=== PATIENT | male | born 1945 | race Caucasian/White ===

== ENCOUNTER 2024-02-07 12:17 | Emergency (ER) | payer MEDICARE, OTHER, SELFPAY ==
[2024-02-07] VITALS (8 sets, daily range): BP systolic 109–139; BP diastolic 63–81; BMI 20.8
[2024-02-07 13:01] LABS: % Basophils 0.5 % (0-2); % Eosinophils 2.9 % (0-6); % Immature Granulocytes 0.3 % (0-0.5); % Lymphocytes 19.7 % (20.5-51.1); % Monocytes 9.5 % (1.7-9.3); % Neutrophils 67.1 % (42.2-75.2); Absolute Basophils 0.1 10^3/uL (0-0.2); Absolute Eosinophils 0.3 10^3/uL (0-0.7); Absolute Lymphocytes 1.9 10^3/uL (1.2-3.4); Absolute Monocytes 0.9 10^3/uL (0.1-0.6); Absolute Neutrophils 6.6 10^3/uL (1.4-6.5); Hematocrit 47.1 % (39.0-52.0); Hemoglobin 15.8 g/dL (13.0-18.0); Mean Corp Hgb Conc. 33.5 g/dL (33.0-37.0); Mean Corpuscular Hgb 30.3 pg (27.0-31.0); Mean Corpuscular Volume 90.2 fL (80.0-94.0); Mean Platelet Volume 9.9 fL (7.4-10.4); Nucleated Red Blood Cells % 0 % (-); Platelet Count 204 10^3/uL (130-400); Red Blood Cell Count 5.22 10^6/uL (4.70-6.10); Red Cell Dist. Width 14.6 % (11.5-14.5); White Blood Cell Count 9.8 10^3/uL (4.8-10.8)
--- NOTE | 2024-02-07 13:17 | ED.CVA ---
History of Present Illness
General
Chief Complaint: CVA/TIA Symptoms
Source: patient and family
Time Seen by Provider: 02/07/24 12:56
Onset of Stroke Symptoms
Onset of symptoms known: Yes
Date of onset of symptoms: 02/05/24
Travel History
Have you had any contact with someone who has COVID-19?: No
Do you have any symptoms of coronavirus? Fever > 100 degrees, chills, cough, shortness of breath, sore throat, loss of taste or smell, muscle aches, or headache?: No
History of Present Illness
History of Present Illness:
78-year-old male who presents with his daughter who was concerned about him. On Wednesday he sort of went to bed early as he was little more tired than usual. He slept all night which is atypical for him. In the middle of the night he was found on
the ground and had fallen. He must of got back in bed but then maybe fell a second time and in the morning the daughter became concerned because he was still sleeping and noticed that he was only half on the bed. The patient states that he was
weak on his right side and could not get back into bed. He states he mostly just notes that he was weak in his right lower extremity no fevers. No headache. He did not want to come in yesterday. Today he actually feels better but he spoke to his
neurologist who advised he come for evaluation. He has been urinating somewhat frequently.
Past History
Past History
ED Past Medical History: Other (Chronic spinal issues, CANVAS SYNDROME)
ED Past Surgical History: Orthopedic
Social History
Living: with family
Phy Exam
Physical Exam
Physical Exam:
CONSTITUTIONAL Patient alert and oriented to person, place and time. Well-appearing. Vital signs reviewed.
HEAD atraumatic, normocephalic.
EYES eyelids normal to inspection, Pupils equally round and reactive to light, Extraocular muscles intact, Conjunctiva normal, Sclera normal.
NECK normal range of motion, Trachea midline, no jugular venous distention.
RESPIRATORY CHEST No respiratory distress noted, Chest expansion equal, Bilateral breath sounds clear.
CARDIOVASCULAR regular rate and rhythm, Heart sounds normal.
ABDOMEN abdomen nontender, Bowel sounds normal. No distention.
BACK normal inspection, no obvious deformities
UPPER EXTREMITY range of motion normal, Motor strength normal, no cyanosis, no edema.
LOWER EXTREMITY range of motion normal, Motor strength normal, no cyanosis, no edema.
NEURO Speech normal, No focal motor deficits, [place] coma scale 15, Memory normal, Cranial Nerves intact to screening exam. No pronator drift. Normal [id number]. Normal [id number].
SKIN skin warm, dry, and normal in color.
PSYCHIATRIC patient oriented to person place and time, Normal affect.
Course
Orders/Labs/Results
Orders:
Orders
02/07/24 12:44
CMP [Comprehensive Metabolic Panel] Routine
Complete Blood Count/With Diff Urgent
02/07/24 13:16
CT Head W/o Iv Contrast Urgent
Comment:
Reason For Exam: R sided weakness, h/o CANVAS syndrome
02/07/24 13:17
0.9% Sodium Chloride 500 ml [Nss] 500 ml IV BOLUS
02/07/24 14:28
Urinalysis Reflex To Culture Urgent
Date Specimen was Collected: 02/07/24
Time Specimen was Collected: 13:18
02/07/24 16:07
Carotid US [US Cerebrovascular] Urgent
Comment:
Reason For Exam: R sided weakness, resolved
Abnormal Lab Results
02/07/24
12:44
RDW 14.6 H %
(11.5-14.5)
Absolute Neuts (auto) 6.6 H 10^3/uL
(1.4-6.5)
Absolute Monos (auto) 0.9 H 10^3/uL
(0.1-0.6)
Lymphocytes % 19.7 L %
(20.5-51.1)
Monocytes % 9.5 H %
(1.7-9.3)
BUN 22 H mg/dl
(9-20)
Total Protein 6.0 L g/dl
(6.3-8.2)
02/07/24 12:44
02/07/24 12:44
Vital Signs
Initial and Last Documented VS:
Initial Vital Signs
Temp Pulse Resp BP Pulse Ox
98.1 F 78 18 125/81 91
02/07/24 12:19 02/07/24 12:19 02/07/24 12:19 02/07/24 12:19 02/07/24 12:19
Last Documented Vital Signs
Temp Pulse Resp BP Pulse Ox
97.2 F 67 18 121/68 93
02/07/24 14:51 02/07/24 15:15 02/07/24 15:15 02/07/24 15:00 02/07/24 15:15
MDM/Problems Addressed
MDM/Problems Addressed:
Weakness, possible TIA, history of Canvas syndrome
*Radiology
Radiology exam reviewed: radiology read reviewed
*Pulse Oximetry
Patient hypoxic: no
*Volunteer Assistant Interpretation
Rate: normal
Interpretation: normal
Rhythm: sinus
*Critical Care Note
Total Time (30-74mins, 75-104mins- exclusive of procedures): Not Applicable
Data Reviewed
Source: patient and family
Further Testing Considered But Not Given:
Considered MRI but patient is completely asymptomatic and his neuroassessment is normal
Patient Management
Discussion with other providers: [facility] [employer] (Case discussed with neurology Dr. Farah)
Escalation/DeEscalation of care consider admission/obs:
Case discussed with neurology. Carotid ultrasound shows less than 50%. Neurology recommends statin, daily aspirin and outpatient follow-up. I think this is reasonable. Patient at rest with no symptoms. Okay for discharge. Known to [facility]
neurology which she will follow-up with
ED Attending Note
-
Portions of this chart may have been created with voice recognition software.� Occasional wrong word or��sound alike� substitutions may have occurred due to the inherent limitations of voice recognition software.
Discharge Plan
Departure
Patient Disposition: Home (Routine Discharge)
Date of Disposition: 02/07/24
Time of Disposition: 17:05
Patient with high blood pressure during this ER visit?: No
Discharge Problem:
WEAKNESS-RESOLVED
Instructions: Generalized Weakness
Prescriptions:
New
atorvastatin 20 mg tablet
20 mg PO DAILY Qty: 30 0RF
No Action
gabapentin 100 mg Capsule
100 mg PO BID@1300,1900
morphine 15 mg Tablet
15 mg PO BID
oxycodone 5 mg Tablet
5 mg PO QID
Referrals:
Mark Zaman MD [Family Provider] -
Activity Restrictions/Additional Instructions:
Please see your doctor or neurologist in the next 3 to 5 days for follow-up and reevaluation. Return immediately for any weakness of any kind, changes in mentation, fevers, chest pain, shortness of breath or any other concerns.
Please take 81 mg of aspirin daily.
Interventions
Interventions:
*Risk Screen - Suicide Last Done: 02/07/24 12:24
*General Assessment Last Done: 02/07/24 12:24
*Neglect/Abuse Screening Last Done: 02/07/24 12:24
ED- Fall Risk Assessment Last Done: 02/07/24 12:56
*ED COVID-19 Vaccine History Last Done: 02/07/24 12:32
ED- Pulmonary Assessment Last Done: 02/07/24 12:56
ED- Neurological Assessment Last Done: 02/07/24 12:56
ED- Cardiac Assessment Last Done: 02/07/24 12:56
ED Swallowing Screen Last Done: 04/29/24 15:42
Discharge Date and Time
Print Language: YAKUT
[2024-02-07 13:24] LABS: ALT (SGPT) 24 U/L (0-50); AST (SGOT) 26 U/L (17-59); Albumin 3.7 g/dl (3.5-5.0); Alkaline Phosphatase 80 U/L (38-126); Blood Urea Nitrogen 22 mg/dl (9-20); Carbon Dioxide 29 mmol/L (22-30); Chloride 103 mmol/L (98-107); Estimated Creatinine Clearance 67 ml/min; Glucose 75 mg/dl (70-99); Potassium 3.9 mmol/L (3.5-5.1); Sodium 139 mmol/L (135-145); Total Bilirubin 0.7 mg/dl (0.2-1.3); eGFR > 60.00
[2024-02-07] MEDS: NSS 500 IV (13:24)
--- NOTE | 2024-02-07 14:30 | EDRN ---
the pt pressed the call chaparro and this RN entered the pts room, the pt stated to this RN that he needed to use the bathroom, this RN unhooked the pt from the monitor and the pt was able to walk to the bathroom and back to the stretcher x1 assist with
no issues, the pt is resting in stretcher in the lowest position, side rails up x2, call chaparro within reach, HOB elevated, will continue to monitor the pt closely
[2024-02-07 14:36] LABS: Urine Albumin Negative (Neg - Trace); Urine Bilirubin Negative (Negative); Urine Character Clear (Clear); Urine Glucose Negative (Negative); Urine Ketone Negative (Negative); Urine Leukocyte Negative (Negative); Urine Nitrite Negative (Negative); Urine Occult Blood Negative (Negative); Urine Urobilinogen 1+ (Neg - 1+)
[2024-02-07 14:37] LABS: Urine Color Yellow
== END 2024-02-07 17:31 | disposition home or self-care (01) ==
LOC: EMR 12:17
PROVIDERS: Emergency Medicine; EMERGENCY PHYSICIAN Emergency Medicine; FAMILY PHYSICIAN Internal Medicine
DX: R53.1 Weakness (principal)
CPT/HCPCS: 99285; 96360; 70450; 80053; 81003; 85025; 93880

== ENCOUNTER 2024-08-09 18:13 | Emergency (ER) | payer MEDICARE, OTHER, SELFPAY ==
[2024-08-09 18:29] VITALS: BP 151/77
--- NOTE | 2024-08-09 23:08 | ED.GENMED ---
History of Present Illness
General
Chief Complaint: Ear Problem
Source: patient
Exam Limitations: none
Time Seen by Provider: 08/09/24 21:58
Nursing documentation reviewed up to this point in time: agreed with
History of Present Illness
History of Present Illness:
Patient to ED with complaint of loss of hearing, fullness sensationn to left ear. Symptoms started earlier this week. He participated in a telehealth visit and was prescribed antibiotc ear drops for possible OE. Reports no improvement. Daughter
reports hx of wax impactions. Has been using debrox over the past few days but symptpoms persist. Denies fever/chills, recent illness. No history of trauma. Denies any pain
Past History
Past History
ED Past Medical History: Other (Chronic spinal issues, CANVAS SYNDROME)
ED Past Surgical History: Orthopedic
Social History
Living: with family
Review of Systems
Review of Systems
Allergies reviewed?: Yes
All Other Systems: ROS reviewed and negative except as documented in HPI and ROS
Constitutional: Reports no symptoms
EENT: Reports other (loss of hearing, fullness sensation left ear)
Respiratory: Reports no symptoms
Cardiac: Reports no symptoms
ABD/GI: Reports no symptoms
: Reports no symptoms
Musculoskeletal: Reports no symptoms
Skin: Reports no symptoms
Neurological: Reports no symptoms
Psychiatric: Reports no symptoms
Phy Exam
General Physical Exam
General Presentation: well appearing
General age: appears stated age
General Skin: warm and dry
General Habitus: normal
General Mental: alert
ENT Exam
ENT Exam: neck supple, swallowing well and other (right TM, canal clear. Left canal with cerumen impaction. TM not visible)
Musculoskeletal Exam
Musculoskeletal Exam: full ROM and neuro vasc intact
Skin Exam
Skin Exam: normal color, warm/dry and no rash
Psychiatric Exam
Psychiatric Exam: normal mood/affect
Course
Vital Signs
Initial and Last Documented VS:
Initial Vital Signs
Temp Pulse Resp BP Pulse Ox
98.6 F 74 16 151/77 99
08/09/24 18:29 08/09/24 18:29 08/09/24 18:29 08/09/24 18:29 08/09/24 18:29
Last Documented Vital Signs
Temp Pulse Resp BP Pulse Ox
98.6 F 74 16 151/77 99
08/09/24 18:29 08/09/24 18:29 08/09/24 18:29 08/09/24 18:29 08/09/24 18:29
Procedures
Foreign Body Removal-Ear
Left External canal:
Tenderness: none
Any local drainage: none
External ear canal cleaned with removal of cerumen using: irrigation and curette
Exam of canal after removal: no inflammation (Left TM clear.)
*Critical Care Note
Total Time (30-74mins, 75-104mins- exclusive of procedures): Not Applicable
ED Attending Note
-
Portions of this chart may have been created with voice recognition software.� Occasional wrong word or��sound alike� substitutions may have occurred due to the inherent limitations of voice recognition software.
Discharge Plan
Departure
Patient Disposition: Home (Routine Discharge)
Date of Disposition: 08/09/24
Time of Disposition: 22:05
Patient with high blood pressure during this ER visit?: No
Condition: Good
Covid-19: Not Applicable
Discharge Problem:
Impacted cerumen
Instructions: Ear Wax Impaction (DC)
Prescriptions:
No Action
gabapentin 100 mg Capsule
100 mg PO BID@1300,1900
morphine 15 mg Tablet
15 mg PO BID
oxycodone 5 mg Tablet
5 mg PO QID
atorvastatin 20 mg tablet
20 mg PO DAILY Qty: 30 0RF
Referrals:
Mark Zaman MD [Family Provider] - As needed
Interventions
Interventions:
*Risk Screen - Suicide Last Done: 08/09/24 18:29
*General Assessment Last Done: 08/09/24 22:11
*Neglect/Abuse Screening Last Done: 08/09/24 18:29
ED- Fall Risk Assessment Last Done: 08/09/24 22:11
*ED COVID-19 Vaccine History Last Done: 08/09/24 22:11
*Nursing Disposition Last Done: 08/09/24 22:11
Discharge Date and Time
Discharge Date/Time: 08/09/24 22:12
Print Language: BULGARIAN
== END 2024-08-09 22:12 | disposition home or self-care (01) ==
LOC: EMR 18:13
PROVIDERS: EMERGENCY PHYSICIAN Emergency Medicine; FAMILY PHYSICIAN Internal Medicine
DX: H61.22 Impacted cerumen, left ear (principal)
CPT/HCPCS: 69210; 99282

== ENCOUNTER 2024-09-06 14:20 | Emergency (ER) | payer MEDICARE, OTHER, SELFPAY ==
[2024-09-06 14:27] VITALS: BP 130/89
[2024-09-06 15:06] VITALS: BP 132/76
--- NOTE | 2024-09-06 15:27 | ED.GENMED ---
Addendum entered and electronically signed by Elda Santiago PA-C 09/07/24 08:09:
subha culture was not enough sample to test and was cancelled
i spoke with patient, he is feeling better, no fever.
Original Note:
History of Present Illness
General
Chief Complaint: Breathing Problem
Source: patient and family
Time Seen by Provider: 09/06/24 15:03
History of Present Illness
History of Present Illness:
79-year-old male presents to the emergency room from his primary care doctor's office. He went to the doctor's office for evaluation of a cough that is been present for the past 2 or 3 weeks. He has less energy, decreased appetite. He is
tolerating oral intake but has not minimal desire to eat. He is drinking fluids. Patient is a daily smoker. He does not have a diagnosed history of COPD. He does not use inhalers or nebulizers. He had a subjective fever last week. Patient
became dizzy when he got out of the car in the parking lot. No recent travel.
Past History
Past History
ED Past Medical History: Other (Chronic spinal issues, CANVAS SYNDROME)
ED Past Surgical History: Orthopedic
Social History
Living: with family
Phy Exam
Physical Exam
Physical Exam:
General: Awake, Alert, Oriented X3. No acute distress, thin and chronically ill-appearing
Vitals: Hypoxic on room air
Head: Atraumatic
Eyes: Pupils equal, EOMI
Throat: Airway intact, no exudates
Neck: Trachea midline
Lungs: Rhonchi and expiratory wheeze
Heart: Regular rate, no murmurs
Abd: Soft, Nontender, No pulsatile mass
Neuro: No focal weakness
Skin: Warm, dry, no rash
Extremities: pulses equal b/l, no edema
Scores
Heart Failure Risk
Heart Failure Risk Score: Not Applicable
Course
Orders/Labs/Results
Orders:
Orders
09/06/24 14:22
Electrocardiogram (*1) Urgent
Reason for Study: Shortness of Breath
Other Reason for Exam: Dizziness
EKG- Treatment ONCE
09/06/24 15:22
Ipratropium/Albuterol Sulfate [Duoneb] 3 ml INH R NOW STA
09/06/24 15:23
CR Chest - 2 Views Urgent
Comment:
Reason For Exam: sob, cough
09/06/24 15:51
Basic Metabolic Panel Urgent
Complete Blood Count/With Diff Urgent
Lactic Acid Q4H
Comment: CANCEL 2nd LACTIC ACID IF 1st LACTIC ACID IS LESS THAN 2
Procalcitonin Urgent
PCT Algorithmm Indication: Respiratory
Blood Culture Urgent
TAWANDA Source: Blood/Venous
Specimen Description:
Influenza A+B Rapid Molecular Urgent
TAWANDA Source: Nasal Swab
Specimen Description:
09/06/24 17:11
Ipratropium/Albuterol Sulfate [Duoneb] 3 ml INH R NOW STA
09/06/24 18:21
Prednisone [Deltasone] 60 mg PO NOW STA
Abnormal Lab Results
09/06/24
15:51
WBC 11.9 H 10^3/uL
(4.8-10.8)
Abs Immat Gran (auto) 0.1 H 10^3/uL
(0-0.05)
Absolute Neuts (auto) 9.6 H 10^3/uL
(1.4-6.5)
Absolute Monos (auto) 0.8 H 10^3/uL
(0.1-0.6)
Immature Gran % 0.6 H %
(0-0.5)
Neutrophils % 80.9 H %
(42.2-75.2)
Lymphocytes % 10.8 L %
(20.5-51.1)
Chloride 97 L mmol/L
(98-107)
09/06/24 15:51
09/06/24 15:51
Vital Signs
Initial and Last Documented VS:
Initial Vital Signs
Temp Pulse Resp BP
99.9 F 75 16 130/89
09/06/24 14:27 09/06/24 14:27 09/06/24 14:27 09/06/24 14:27
Last Documented Vital Signs
Temp Pulse Resp BP Pulse Ox
99.9 F 66 17 132/76 91
09/06/24 14:27 09/06/24 15:15 09/06/24 16:04 09/06/24 15:06 09/06/24 15:15
MDM/Problems Addressed
Differential Diagnosis Includes:
pneumonia, acute bronchitis, copd exacerbation,
MDM/Problems Addressed:
Patient presents with persistent cough, shortness of breath with exertion. He was seen at his primary care provider sent to the ER. Workup here reveals a minimally elevated white blood cell count. His hemoglobin is normal. His chemistries are
reassuring. Procalcitonin is normal. Chest x-ray obtained and I do not see any signs of infiltrate. Patient was given DuoNebs here. He was given a dose of oral prednisone. We did a road test and he was able to ambulate with a walker at his
baseline. His daughter observed him ambulating and felt like he was not quite at his baseline but okay. Joint decision making with the conclusion of discharge. Return precautions discussed. My plan was to discharge the patient on doxycycline,
prednisone and an albuterol metered-dose inhaler. Daughter states they received confirmation from the pharmacy that a prescription for Levaquin and an albuterol MDI was already sent. Therefore I will send a prescription for prednisone only.
*Radiology
Radiology exam reviewed: preliminary read by ED provider (No infiltrate)
*Pulse Oximetry
Patient hypoxic: yes
Comment: 91
*EKG
Interpreted by ED Provider?: Yes
Comparison EKG: no comparison EKG present
Heart Rate: 73
Rate: normal
Rhythm: sinus and PAC's
[place]: normal axis
Interval: normal interval
QRS Pattern: normal QRS
Ischemia: no ischemia
*Pants Cutter Interpretation
Rate: normal
Interpretation: normal
Heart Rate: 73
Rhythm: sinus and PAC's
*Critical Care Note
Total Time (30-74mins, 75-104mins- exclusive of procedures): Not Applicable
ED Attending Note
-
Portions of this chart may have been created with voice recognition software.� Occasional wrong word or��sound alike� substitutions may have occurred due to the inherent limitations of voice recognition software.
Discharge Plan
Departure
Patient Disposition: Home (Routine Discharge)
Date of Disposition: 09/06/24
Time of Disposition: 18:21
Patient with high blood pressure during this ER visit?: No
Condition: Good
Discharge Problem:
Acute bronchitis, Acute bronchospasm
Instructions: Acute Bronchitis, Adult (DC), Wheezing
Prescriptions:
New
prednisone 20 mg tablet
40 mg PO DAILY Qty: 8 0RF
No Action
gabapentin 100 mg Capsule
100 mg PO BID@1300,1900
morphine 15 mg Tablet
15 mg PO BID
oxycodone 5 mg Tablet
5 mg PO QID
atorvastatin 20 mg tablet
20 mg PO DAILY Qty: 30 0RF
Referrals:
Hernandez Marrero MD [Active] -
Mark Zaman MD [Family Provider] -
Interventions
Interventions:
ED- Fall Risk Assessment Last Done: 09/06/24 16:04
ED- Cardiac Assessment Last Done: 09/06/24 16:04
ED- Pulmonary Assessment Last Done: 09/06/24 16:04
Discharge Date and Time
Print Language: SLOVENIAN
[2024-09-06] MEDS: DUONEB 3 ML INH ×2 (15:52→17:14)
[2024-09-06 16:04] VITALS: BMI 21.3
[2024-09-06 16:19] LABS: % Basophils 0.4 % (0-2); % Eosinophils 0.6 % (0-6); % Immature Granulocytes 0.6 % (0-0.5); % Lymphocytes 10.8 % (20.5-51.1); % Monocytes 6.7 % (1.7-9.3); % Neutrophils 80.9 % (42.2-75.2); Absolute Basophils 0.1 10^3/uL (0-0.2); Absolute Eosinophils 0.1 10^3/uL (0-0.7); Absolute Immature Granulocytes 0.1 10^3/uL (0-0.05); Absolute Lymphocytes 1.3 10^3/uL (1.2-3.4); Absolute Monocytes 0.8 10^3/uL (0.1-0.6); Absolute Neutrophils 9.6 10^3/uL (1.4-6.5); Hematocrit 47.4 % (39.0-52.0); Hemoglobin 15.7 g/dL (13.0-18.0); Lactic Acid 1.2 mmol/L (0.7-2.0); Mean Corp Hgb Conc. 33.1 g/dL (33.0-37.0); Mean Corpuscular Hgb 29.7 pg (27.0-31.0); Mean Corpuscular Volume 89.6 fL (80.0-94.0); Mean Platelet Volume 9.9 fL (7.4-10.4); Nucleated Red Blood Cells % 0 % (-); Platelet Count 298 10^3/uL (130-400); Red Blood Cell Count 5.29 10^6/uL (4.70-6.10); Red Cell Dist. Width 14.3 % (11.5-14.5); White Blood Cell Count 11.9 10^3/uL (4.8-10.8)
[2024-09-06 16:34] LABS: Blood Urea Nitrogen 11 mg/dl (9-20); Calcium 8.8 mg/dl (8.4-10.2); Carbon Dioxide 28 mmol/L (22-30); Chloride 97 mmol/L (98-107); Estimated Creatinine Clearance 77 ml/min; Glucose 96 mg/dl (70-99); Potassium 4.8 mmol/L (3.5-5.1); Sodium 135 mmol/L (135-145); eGFR > 60.00
[2024-09-06 16:48] LABS: Procalcitonin 0.07 ng/ml (0.0-0.25)
[2024-09-06] MEDS: DELTASONE 60 MG PO (18:38)
== END 2024-09-06 18:39 | disposition home or self-care (01) ==
LOC: EMR 14:20
PROVIDERS: EMERGENCY PHYSICIAN Emergency Medicine; FAMILY PHYSICIAN Internal Medicine
DX: J20.9 Acute bronchitis, unspecified (principal); F17.200 Nicotine dependence, unspecified, uncomplicated
CPT/HCPCS: 99285; 94640; 71046; 80048; 83605; 84145; 85025; 87040; 87502; 93005

== ENCOUNTER 2024-12-30 10:31 | Emergency (ER) | payer MEDICARE, OTHER, SELFPAY ==
[2024-12-30 10:33] VITALS: BP 142/89
[2024-12-30 11:09] VITALS: BP 159/91
[2024-12-30] MEDS: NSS 1000 IV (11:16)
--- NOTE | 2024-12-30 11:20 | ED.GENMED ---
History of Present Illness
General
Chief Complaint: Fall
Time Seen by Provider: 12/30/24 10:44
History of Present Illness
History of Present Illness:
79-year-old male with history of CANVAS presenting to the emergency department after a fall. Patient reports that he got up this morning, got out of bed and went downstairs. He had a couple coffee and then got up to going to his office. He
started to feel dizzy and lightheaded, fell onto his right side with subsequent injury to the right parietal scalp and right ribs. He denies loss of consciousness. Daughter at bedside, does note frequent falls. Patient also frequently has dizzy
episodes from his CANVAS, and from his gabapentin. Patient also has history of chronic pain, takes morphine and oxycodone. He had an oxycodone this morning, drank coffee, and did not have anything to eat or drink otherwise. Denies associated
chest pain or difficulty breathing. Denies abdominal pain. Denies weakness or numbness to his extremities. He is on aspirin, otherwise no thinners. Denies additional acute medical complaints
Past History
Past History
ED Past Medical History: Other (Chronic spinal issues, CANVAS SYNDROME)
ED Past Surgical History: Orthopedic
Social History
Living: with family
Phy Exam
Physical Exam
Physical Exam:
General: Well-appearing, no clinical signs of dehydration, nontoxic and in no acute distress
Head: abrasion to right parietal scalp, above ear, skin avulsion
HEENT: protecting airway
Neck: appears supple, no tenderness
CV: Normal heart rate, regular rhythm
Resp: No accessory muscle use, no increased work of breathing, lungs clear to auscultation bilaterally. Reproducible tenderness to the mid axillary region of the upper right chest wall. No crepitus. No ecchymosis
Abd: Soft and non-distended, no tenderness to palpation
Extremities: No deformities, no swelling
Neuro: alert, no focal neurologic deficit
: deferred
Rectal: deferred
Psych: Normal affect
Skin: Intact
Course
Orders/Labs/Results
Orders:
Orders
12/30/24 11:07
0.9% Sodium Chloride 1000 ml [Nss] 1,000 ml IV BOLUS
Ribs, Right 3 View W/PA Chest [CR Ribs-right 3 Vw W/pa Chest*] Urgent
Comment:
Reason For Exam: upper right pain after fall
12/30/24 11:08
CT Head W/o Iv Contrast Urgent
Comment:
Reason For Exam: fall, right head strike
12/30/24 11:15
Complete Blood Count/With Diff Urgent
Comprehensive Metabolic Panel Urgent
12/30/24 12:18
Oxycodone/Acetaminophen [Percocet 5/325] 1 tablet PO NOW STA
Abnormal Lab Results
12/30/24
11:15
RDW 14.6 H %
(11.5-14.5)
Absolute Neuts (auto) 7.4 H 10^3/uL
(1.4-6.5)
Absolute Monos (auto) 0.8 H 10^3/uL
(0.1-0.6)
Lymphocytes % 13.7 L %
(20.5-51.1)
Total Protein 5.8 L g/dl
(6.3-8.2)
12/30/24 11:15
12/30/24 11:15
Vital Signs
Initial and Last Documented VS:
Initial Vital Signs
Temp Pulse Resp BP Pulse Ox
98.5 F 73 18 142/89 98
12/30/24 10:33 12/30/24 10:33 12/30/24 10:33 12/30/24 10:33 12/30/24 10:33
Last Documented Vital Signs
Temp Pulse Resp BP Pulse Ox
98.7 F 68 14 154/74 95
12/30/24 10:36 12/30/24 12:15 12/30/24 12:15 12/30/24 12:11 12/30/24 12:15
MDM/Problems Addressed
MDM/Problems Addressed:
79-year-old male with history of CANVAS presenting after a dizzy episode and subsequent fall. Vital signs on arrival are normal.
On arrival patient is overall well-appearing, awake and alert. Does have some signs of head trauma with small skin avulsion to the right side of the scalp. Bleeding is controlled. No tenderness to the cervical spine. He additionally has
tenderness to the upper chest wall at the mid axillary region with suspicion for rib contusion versus fracture. Lungs are clear to auscultation bilaterally with lower suspicion for pneumothorax. Plan for CT brain imaging and chest x-ray imaging.
No additional signs of trauma or abnormality on secondary exam. Regarding mechanism of fall, suspect vasovagal quality versus side effect from patient's syndrome. Plan for screening laboratory analysis and IV fluids. Tetanus up-to-date. Wound
was cleaned and appropriately dressed.
13:00 -CT head negative. Rib x-ray is negative. Labs are unremarkable. Patient remains hemodynamically stable. Feel stable for discharge. Advised continued oral hydration, and appropriate nutrition while taking narcotics and gabapentin. Will
provide incentive spirometry. Return precautions discussed and patient verbalized understanding
*Critical Care Note
Total Time (30-74mins, 75-104mins- exclusive of procedures): Not Applicable
ED Attending Note
-
Portions of this chart may have been created with voice recognition software.� Occasional wrong word or��sound alike� substitutions may have occurred due to the inherent limitations of voice recognition software.
Discharge Plan
Departure
Prescriptions:
No Action
gabapentin 100 mg Capsule
100 mg PO BID@1300,1900
morphine 15 mg Tablet
15 mg PO BID
oxycodone 5 mg Tablet
5 mg PO QID
atorvastatin 20 mg tablet
20 mg PO DAILY Qty: 30 0RF
prednisone 20 mg tablet
40 mg PO DAILY Qty: 8 0RF
Referrals:
Mark Zaman MD [Family Provider] -
Interventions
Interventions:
*Risk Screen - Suicide Last Done: 12/30/24 10:33
*General Assessment Last Done: 12/30/24 10:33
*ED- Fall Risk Assessment Last Done: 12/30/24 10:33
*ED COVID-19 Vaccine History Last Done: 12/30/24 10:33
ED-Musculoskeletal Assessment Last Done: 12/30/24 11:27
ED- Neurological Assessment Last Done: 12/30/24 11:27
ED-Skin Assessment Last Done: 12/30/24 11:27
Discharge Date and Time
Print Language: INDONESIAN
[2024-12-30 11:22] LABS: % Basophils 0.6 % (0-2); % Eosinophils 4.6 % (0-6); % Immature Granulocytes 0.3 % (0-0.5); % Lymphocytes 13.7 % (20.5-51.1); % Monocytes 7.4 % (1.7-9.3); % Neutrophils 73.4 % (42.2-75.2); Absolute Basophils 0.1 10^3/uL (0-0.2); Absolute Eosinophils 0.5 10^3/uL (0-0.7); Absolute Lymphocytes 1.4 10^3/uL (1.2-3.4); Absolute Monocytes 0.8 10^3/uL (0.1-0.6); Absolute Neutrophils 7.4 10^3/uL (1.4-6.5); Hematocrit 47.4 % (39.0-52.0); Hemoglobin 15.8 g/dL (13.0-18.0); Mean Corp Hgb Conc. 33.3 g/dL (33.0-37.0); Mean Corpuscular Hgb 29.9 pg (27.0-31.0); Mean Corpuscular Volume 89.8 fL (80.0-94.0); Mean Platelet Volume 9.9 fL (7.4-10.4); Nucleated Red Blood Cells % 0 % (-); Platelet Count 243 10^3/uL (130-400); Red Blood Cell Count 5.28 10^6/uL (4.70-6.10); Red Cell Dist. Width 14.6 % (11.5-14.5); White Blood Cell Count 10.1 10^3/uL (4.8-10.8)
[2024-12-30 11:39] LABS: ALT (SGPT) 19 U/L (0-50); AST (SGOT) 24 U/L (17-59); Albumin 3.5 g/dl (3.5-5.0); Alkaline Phosphatase 90 U/L (38-126); Blood Urea Nitrogen 12 mg/dl (9-20); Carbon Dioxide 30 mmol/L (22-30); Chloride 103 mmol/L (98-107); Glucose 97 mg/dl (70-99); Potassium 4.4 mmol/L (3.5-5.1); Sodium 137 mmol/L (135-145); Total Bilirubin 0.8 mg/dl (0.2-1.3); Total Protein 5.8 g/dl (6.3-8.2); eGFR > 60.00
[2024-12-30 12:11] VITALS: BP 154/74
[2024-12-30] MEDS: PERCOCET 5/325 1 TABLET PO (12:24)
[2024-12-30 13:00] VITALS: BP 121/71
== END 2024-12-30 13:33 | disposition home or self-care (01) ==
LOC: EMR 10:31
PROVIDERS: EMERGENCY PHYSICIAN Student in an Organized Health Care Education/Training Program; FAMILY PHYSICIAN Internal Medicine
DX: S20.20XA Contusion of thorax, unspecified, initial encounter (principal); S01.80XA Unspecified open wound of other part of head, initial encounter; S09.90XA Unspecified injury of head, initial encounter; W19.XXXA Unspecified fall, initial encounter
CPT/HCPCS: 99284; 96360; 70450; 71101; 80053; 85025

== ENCOUNTER → 2025-02-16 13:49 | Outpatient (REF) | payer MEDICARE, OTHER, SELFPAY ==
[2025-02-16 14:12] LABS: Urine Albumin Negative (Neg - Trace); Urine Bilirubin Negative (Negative); Urine Character Clear (Clear); Urine Color Yellow; Urine Glucose Negative (Negative); Urine Ketone Negative (Negative); Urine Leukocyte Negative (Negative); Urine Nitrite Negative (Negative); Urine Occult Blood Negative (Negative); Urine Urobilinogen 1+ (Neg - 1+)
== END ==
LOC: REG 13:49
PROVIDERS: ATTENDING PHYSICIAN Nurse Practitioner Adult Health
DX: R35.0 Frequency of micturition (principal); R32 Unspecified urinary incontinence
CPT/HCPCS: 81003

== ENCOUNTER 2025-06-27 22:43 | Inpatient (IN) | payer MEDICARE, OTHER, SELFPAY ==
[2025-06-27] VITALS (10 sets, daily range): BP systolic 82–118; BP diastolic 50–82; BMI 19.0
--- NOTE | 2025-06-27 20:33 | ED.GENMED ---
History of Present Illness
<Brenna Hidalgo PA-C - Last Filed: 06/28/25 11:30>
General
Chief Complaint: Breathing Problem
Source: patient and family (Daughter at bedside who is caregiver)
Exam Limitations: none
Time Seen by Provider: 06/27/25 20:13
Nursing documentation reviewed up to this point in time: agreed with
History of Present Illness
History of Present Illness:
Patient is a 80-year-old male who presents to the emergency department with daughter/caregiver for evaluation of fever and altered mental status X 1 day. Patient's daughter states that her father began complaining of feeling 'unwell' around 3 PM
yesterday and was describing rigors and myalgias. She also states that he has been doing a few unusual things since yesterday including bringing a towel with him inside the shower and having difficulty using the TV remote, as well as calling her by
the wrong name.
She states that he is been somewhat incontinent to urine since yesterday. He has been dealing with a productive cough with clear sputum over the past few weeks.
Today�patient states he continued to feel unwell prompting visit to the emergency department.
Patient denies any headache or neck pain. He denies any abdominal pain, nausea/vomiting, diarrhea/constipation. No dysuria or hematuria.
No recent head trauma. Patient is not on any oral anticoagulation.
No known sick contacts.
Past History
<Brenna Hidalgo PA-C - Last Filed: 06/28/25 11:30>
Past History
ED Past Medical History: Other (Chronic spinal issues, CANVAS SYNDROME)
ED Past Surgical History: Orthopedic
Social History
Living: with family
Review of Systems
<Brenna Hidalgo PA-C - Last Filed: 06/28/25 11:30>
Review of Systems
Allergies reviewed?: Yes
All Other Systems: ROS reviewed and negative except as documented in HPI and ROS
Phy Exam
<Brenna Hidalgo PA-C - Last Filed: 06/28/25 11:30>
Physical Exam
Physical Exam:
Vitals: Hypoxic on room air. Normotensive by my assessment. Temp 101.0 F
General: Patient is frail appearing, generally weak
Skin: Warm and dry, no rashes or lesions
Head: Normocephalic, atraumatic
Eyes: Sclera nonicteric. EOMs intact. No nystagmus.
Throat: Protecting airway
Neck: Normal ROM, no cervical spine tenderness, no meningismus
Cardiac: Regular rate and rhythm, no murmurs.
Pulm: On 2 L NC. Coarse breath sounds bilaterally
Abdomen: Abdomen soft and nontender. No CVA tenderness.
Extremities: No evidence of cyanosis or edema
Neuro: AAOx3. Grossly intact
Psychiatric: Normal affect.
Scores
<Brenna Hidalgo PA-C - Last Filed: 06/28/25 11:30>
Heart Failure Risk
Heart Failure Risk Score: Not Applicable
Sepsis
<Brenna Hidalgo PA-C - Last Filed: 06/28/25 11:30>
Sepsis Screening
Sepsis Assessment: Severe Sepsis
Sepsis Screening: Lactate >2mmol/L and Worsening O2 Saturation
Sepsis Screen
Sepsis Screen: Severe Sepsis
Date: 06/28/25
Time: 11:21
Course
<Brenna Hidalgo PA-C - Last Filed: 06/28/25 11:30>
Orders/Labs/Results
Orders:
Orders
06/27/25 20:12
Electrocardiogram (*1) Urgent
Reason for Study: Other
Other Reason for Exam: Possible Sepsis
Cardiac Monitoring- Treatment ONCE
EKG- Treatment ONCE
IV Insert/Care/Rem.- Treatment PRN
Straight cath- Treatment ONCE
06/27/25 20:21
COVID-19 Antigen Urgent
Source: Nasal Swab
Complete Blood Count/With Diff Urgent
Comprehensive Metabolic Panel Urgent
Lactic Acid Q4H
Comment: ON ICE, CANCEL 2ND ORDER IF FIRST LACTIC ACID LEVEL <2
Blood Culture Q20M
TAWANDA Source: Blood/Venous
Specimen Description:
Comment: Urgent from separate sites. If patient screens positive for possible sepsis
Influenza A+B Rapid Molecular Urgent
TAWANDA Source: Nasal Swab
Specimen Description:
06/27/25 20:33
CT Head W/o Iv Contrast Urgent
Comment:
Reason For Exam: AMS
CR Chest - 2 Views Urgent
Comment:
Reason For Exam: cough, fever
06/27/25 20:36
Urinalysis Reflex To Culture Urgent
Date Specimen was Collected: 06/27/25
Time Specimen was Collected: 20:12
Urine Microscopic Reflex Cult Urgent
Blood Culture Q20M
TAWANDA Source: Blood/Venous
Specimen Description:
Comment: Urgent from separate sites. If patient screens positive for possible sepsis
Urine Culture Urgent
TAWANDA Source: U
Specimen Description:
Date Specimen was Collected: 06/27/25
Time Specimen was Collected: 20:12
06/27/25 20:59
Acetaminophen [Tylenol] 650 mg PO NOW STA
06/27/25 21:23
Azithromycin 500 mg/250 ml [Zithromax Infusion] 500 mg in 250 ml IV NOW
CefTRIAXone [Rocephin] 1,000 mg IV NOW STA
Sodium Zirconium Cyclosilicate [Lokelma] 10 gram PO NOW STA
06/27/25 21:37
0.9% Sodium Chloride 1000 ml [Nss] 1,000 ml IV BOLUS
Oxycodone [Roxicodone] 5 mg PO NOW STA
06/27/25 22:22
Admit/Transfer Patient As Directed
Co-Sign Provider:
Level of Care: Inpatient admission
Assign to:: Telemetry
Physician / Group: Damián
Diagnosis: Pneumonia
Reason for Telemetry: Arrhythmia
Date to Stop Telemetry: 06/30/25
Time to Stop Telemetry: 11:00
Reason for Hospitalization: IV abx
Expected length of stay greater than two midnights?: Yes
ELOS- Estimated Length of Stay in days: 3
I certify the patient meets the requirements for IP care: Yes
06/27/25 22:23
PRN Pain Medication Management As Directed
May give lesser potent ordered pain med per pt: Yes
preference::
Protocol:: Medication orders for pain may be administered in a
manner that supports deferring to patient preference
when the pt is:
- Requesting an ordered lesser potent pain medication.
Least to most potent pain medications are defined
as: acetaminophen < NSAID < tramadol < opioids
(morphine, oxycodone, hydromorphone).
- Requesting a lesser dose of the same medication IF
ORDERED.
- Requesting a less intrusive route of administration
if both routes are prescribed by the provider (PO <
IV).
06/27/25 22:25
Code Status As Directed
Resuscitation Status: Full Code
06/27/25 22:45
0.9% Sodium Chloride 1000 ml [Nss] 1,000 ml IV 250 mls/hr
06/27/25 23:53
Potassium Routine
Comment: Please call result to house provider
06/28/25 00:03
Lactic Acid Q4H
Comment: ON ICE, CANCEL 2ND ORDER IF FIRST LACTIC ACID LEVEL <2
06/28/25 00:25
Acetaminophen [Tylenol] 650 mg PO Q4HPRN PRN
Ipratropium/Albuterol Sulfate [Duoneb] 3 ml INH R Q4HPRN PRN
06/28/25 00:25
Activity As Directed
Activity Level: Out of Bed-Early Mobility
With Assistance
Vital Signs As Directed
Frequency: Per unit guidelines
Oxygen Therapy [O2 Therapy] [RESP] Routine
Titrate/Wean O2 to maintain O2 sat greater than (%): 92
Ot Eval And Treat Routine
Pt Eval And Treat Routine
Activity Level: Out of Bed-Early Mobility
DX Deep Vein Thrombosis Video Routine
06/28/25 01:00
Morphine Sulfate 15 mg PO BID@0100,1300
06/28/25 03:00
0.9% Sodium Chloride 1000 ml [Nss] 1,000 ml IV 80 mls/hr
06/28/25 04:00
Oxycodone [Roxicodone] 5 mg PO 0400,1000,1600,2200
06/28/25 Breakfast
Regular
At Your Request: Full Participation
06/28/25 07:00
Gabapentin [Neurontin] 100 mg PO BID@0700,1900
06/28/25 08:00
Aspirin Low Dose EC [Aspir Low (Enteric Coated)] 81 mg PO DAILY
Guaifenesin [Mucinex] 600 mg PO Q12
Ipratropium/Albuterol Sulfate [Duoneb] 3 ml INH R QID
06/28/25 08:06
Basic Metabolic Panel IN AM
Complete Blood Count/No Diff IN AM
Magnesium IN AM
06/28/25 18:00
Enoxaparin Sodium [Lovenox] 40 mg SC QPM
06/28/25 22:00
Azithromycin [Zithromax] 500 mg PO HS
CefTRIAXone [Rocephin] 1,000 mg IV Q24H
06/30/25 11:00
DC Protocol for Telemetry ONCE
Abnormal Lab Results
06/27/25 06/27/25
20:21 20:36
WBC 20.7 H 10^3/uL
(4.8-10.8)
MCHC 32.3 L g/dL
(33.0-37.0)
RDW 16.6 H %
(11.5-14.5)
Abs Immat Gran (auto) 0.2 H 10^3/uL
(0-0.05)
Absolute Neuts (auto) 18.3 H 10^3/uL
(1.4-6.5)
Absolute Monos (auto) 0.9 H 10^3/uL
(0.1-0.6)
Immature Gran % 0.8 H %
(0-0.5)
Neutrophils % 88.5 H %
(42.2-75.2)
Lymphocytes % 5.7 L %
(20.5-51.1)
Potassium 6.1 H* mmol/L
(3.5-5.1)
BUN 27 H mg/dl
(9-20)
Glucose 104 H mg/dl
(70-99)
Lactic Acid 2.6 H mmol/L
(0.7-2.0)
Total Bilirubin 1.6 H mg/dl
(0.2-1.3)
Urine Bacteria (Reflex) Moderate A
(Negative)
Urine Albumin (Reflex) 2+ A
(Neg - Trace)
06/27/25 20:21
06/27/25 20:21
Vital Signs
Initial and Last Documented VS:
Initial Vital Signs
Temp Pulse Resp BP Pulse Ox
99.6 F 92 16 82/57 89
06/27/25 19:49 06/27/25 19:49 06/27/25 19:49 06/27/25 19:49 06/27/25 19:49
Last Documented Vital Signs
Temp Pulse Resp BP Pulse Ox
101.5 F H 77 16 147/74 98
06/28/25 07:08 06/28/25 11:14 06/28/25 11:14 06/28/25 07:08 06/28/25 11:14
<Karan Cardenas, DO - Last Filed: 06/27/25 21:37>
Orders/Labs/Results
Orders:
Orders
06/27/25 20:12
Electrocardiogram (*1) Urgent
Reason for Study: Other
Other Reason for Exam: Possible Sepsis
Cardiac Monitoring- Treatment ONCE
EKG- Treatment ONCE
IV Insert/Care/Rem.- Treatment PRN
Straight cath- Treatment ONCE
06/27/25 20:21
COVID-19 Antigen Urgent
Source: Nasal Swab
Complete Blood Count/With Diff Urgent
Comprehensive Metabolic Panel Urgent
Lactic Acid Q4H
Comment: ON ICE, CANCEL 2ND ORDER IF FIRST LACTIC ACID LEVEL <2
Blood Culture Q20M
TAWANDA Source: Blood/Venous
Specimen Description:
Comment: Urgent from separate sites. If patient screens positive for possible sepsis
Influenza A+B Rapid Molecular Urgent
TAWANDA Source: Nasal Swab
Specimen Description:
06/27/25 20:33
CT Head W/o Iv Contrast Urgent
Comment:
Reason For Exam: AMS
CR Chest - 2 Views Urgent
Comment:
Reason For Exam: cough, fever
06/27/25 20:36
Urinalysis Reflex To Culture Urgent
Date Specimen was Collected: 06/27/25
Time Specimen was Collected: 20:12
Urine Microscopic Reflex Cult Urgent
Blood Culture Q20M
TAWANDA Source: Blood/Venous
Specimen Description:
Comment: Urgent from separate sites. If patient screens positive for possible sepsis
Urine Culture Urgent
TAWANDA Source: U
Specimen Description:
Date Specimen was Collected: 06/27/25
Time Specimen was Collected: 20:12
06/27/25 20:59
Acetaminophen [Tylenol] 650 mg PO NOW STA
06/27/25 21:23
Azithromycin 500 mg/250 ml [Zithromax Infusion] 500 mg in 250 ml IV NOW
CefTRIAXone [Rocephin] 1,000 mg IV NOW STA
Sodium Zirconium Cyclosilicate [Lokelma] 10 gram PO NOW STA
06/27/25 21:37
0.9% Sodium Chloride 1000 ml [Nss] 1,000 ml IV BOLUS
Oxycodone [Roxicodone] 5 mg PO NOW STA
06/27/25 22:22
Admit/Transfer Patient As Directed
Co-Sign Provider:
Level of Care: Inpatient admission
Assign to:: Telemetry
Physician / Group: Damián
Diagnosis: Pneumonia
Reason for Telemetry: Arrhythmia
Date to Stop Telemetry: 06/30/25
Time to Stop Telemetry: 11:00
Reason for Hospitalization: IV abx
Expected length of stay greater than two midnights?: Yes
ELOS- Estimated Length of Stay in days: 3
I certify the patient meets the requirements for IP care: Yes
06/27/25 22:23
PRN Pain Medication Management As Directed
May give lesser potent ordered pain med per pt: Yes
preference::
Protocol:: Medication orders for pain may be administered in a
manner that supports deferring to patient preference
when the pt is:
- Requesting an ordered lesser potent pain medication.
Least to most potent pain medications are defined
as: acetaminophen < NSAID < tramadol < opioids
(morphine, oxycodone, hydromorphone).
- Requesting a lesser dose of the same medication IF
ORDERED.
- Requesting a less intrusive route of administration
if both routes are prescribed by the provider (PO <
IV).
06/27/25 22:25
Code Status As Directed
Resuscitation Status: Full Code
06/27/25 22:45
0.9% Sodium Chloride 1000 ml [Nss] 1,000 ml IV 250 mls/hr
06/27/25 23:53
Potassium Routine
Comment: Please call result to house provider
06/28/25 00:03
Lactic Acid Q4H
Comment: ON ICE, CANCEL 2ND ORDER IF FIRST LACTIC ACID LEVEL <2
06/28/25 00:25
Acetaminophen [Tylenol] 650 mg PO Q4HPRN PRN
Ipratropium/Albuterol Sulfate [Duoneb] 3 ml INH R Q4HPRN PRN
06/28/25 00:25
Activity As Directed
Activity Level: Out of Bed-Early Mobility
With Assistance
Vital Signs As Directed
Frequency: Per unit guidelines
Oxygen Therapy [O2 Therapy] [RESP] Routine
Titrate/Wean O2 to maintain O2 sat greater than (%): 92
Ot Eval And Treat Routine
Pt Eval And Treat Routine
Activity Level: Out of Bed-Early Mobility
DX Deep Vein Thrombosis Video Routine
06/28/25 01:00
Morphine Sulfate 15 mg PO BID@0100,1300
06/28/25 03:00
0.9% Sodium Chloride 1000 ml [Nss] 1,000 ml IV 80 mls/hr
06/28/25 04:00
Oxycodone [Roxicodone] 5 mg PO 0400,1000,1600,2200
06/28/25 Breakfast
Regular
At Your Request: Full Participation
06/28/25 07:00
Gabapentin [Neurontin] 100 mg PO BID@0700,1900
06/28/25 08:00
Aspirin Low Dose EC [Aspir Low (Enteric Coated)] 81 mg PO DAILY
Guaifenesin [Mucinex] 600 mg PO Q12
Ipratropium/Albuterol Sulfate [Duoneb] 3 ml INH R QID
06/28/25 08:06
Basic Metabolic Panel IN AM
Complete Blood Count/No Diff IN AM
Magnesium IN AM
06/28/25 18:00
Enoxaparin Sodium [Lovenox] 40 mg SC QPM
06/28/25 22:00
Azithromycin [Zithromax] 500 mg PO HS
CefTRIAXone [Rocephin] 1,000 mg IV Q24H
06/30/25 11:00
DC Protocol for Telemetry ONCE
Abnormal Lab Results
06/27/25 06/27/25
20:21 20:36
WBC 20.7 H 10^3/uL
(4.8-10.8)
MCHC 32.3 L g/dL
(33.0-37.0)
RDW 16.6 H %
(11.5-14.5)
Abs Immat Gran (auto) 0.2 H 10^3/uL
(0-0.05)
Absolute Neuts (auto) 18.3 H 10^3/uL
(1.4-6.5)
Absolute Monos (auto) 0.9 H 10^3/uL
(0.1-0.6)
Immature Gran % 0.8 H %
(0-0.5)
Neutrophils % 88.5 H %
(42.2-75.2)
Lymphocytes % 5.7 L %
(20.5-51.1)
Potassium 6.1 H* mmol/L
(3.5-5.1)
BUN 27 H mg/dl
(9-20)
Glucose 104 H mg/dl
(70-99)
Lactic Acid 2.6 H mmol/L
(0.7-2.0)
Total Bilirubin 1.6 H mg/dl
(0.2-1.3)
Urine Bacteria (Reflex) Moderate A
(Negative)
Urine Albumin (Reflex) 2+ A
(Neg - Trace)
06/27/25 20:21
06/27/25 20:21
Vital Signs
Initial and Last Documented VS:
Initial Vital Signs
Temp Pulse Resp BP Pulse Ox
99.6 F 92 16 82/57 89
06/27/25 19:49 06/27/25 19:49 06/27/25 19:49 06/27/25 19:49 06/27/25 19:49
Last Documented Vital Signs
Temp Pulse Resp BP Pulse Ox
101.5 F H 77 16 147/74 98
06/28/25 07:08 06/28/25 11:14 06/28/25 11:14 06/28/25 07:08 06/28/25 11:14
<Brenna Hidalgo PA-C - Last Filed: 06/28/25 11:30>
MDM/Problems Addressed
Differential Diagnosis Includes:
Not limited to: Sepsis, viral illness, bronchitis, pneumonia, pulmonary embolism, urosepsis, UTI, acute intracerebral hemorrhage, etc.
MDM/Problems Addressed:
80-year-old male presenting with one day of altered mental status and fevers. History of recent productive cough for a few weeks. No abdominal pain, urinary symptoms, or back pain. Patient hypoxic on RA upon arrival and febrile. Otherwise stable
vital signs. Physical exam as above.
Differential broad. Given history and fever on arrival � concern for infectious process. Clinical picture consistent with pulmonary source. Lower suspicion for central cause of AMS.
ED plan: septic work up including labs, lactic acid, blood cultures. Will check urinalysis. Will check chest x-ray and CT head to r/o acute intracranial abnormality. Will give IV fluids wide open and Tylenol.
Update: Labs reveal leukocytosis of 20,000. Chemistry with hyperkalemia, K of 6.1 however no acidosis or renal insufficiency. EKG show sinus tachycardia without signs of peaked T waves. UA does not appear infected. Head CT without acute findings.
Chest x-ray shows right lower lobe opacity suspicious for pneumonia.
Patient started on Rocephin/azithromycin in ED. He was given a dose of lokelma to treat hyperkalemia.
Patient meets severe sepsis criteria with hypoxia, fever, evidence of pulmonary infection and elevated lactic acid.
His vital signs remained stable in ED without hypotension and was accepted to hospitalist service for further care.
Chronic conditions affecting care:
N/A
Acute Exacerbation and/or Progression of Chronic Illness:
N/A
<Brenna Hidalgo PA-C - Last Filed: 06/28/25 11:30>
*Radiology
Radiology exam reviewed: preliminary read by ED provider (Chest x-ray reviewed by me-right lower lobe opacity) and radiology read reviewed
*Pulse Oximetry
SaO2: 97
Nasal Cannula flow liters per minute: 2
Oxygen Mode of Delivery: Room air
Patient hypoxic: yes
*EKG
Interpreted by ED Provider?: Yes
EKG Intrepretation Date: 06/27/25
Comparison EKG: changes noted
Heart Rate: 103
Rate: tachycardiac
Rhythm: sinus
[place]: normal axis
Interval: normal QT interval
QRS Pattern: normal QRS
Ischemia: non-specific ST changes
*Front Desk Person Interpretation
Rate: normal
Interpretation: normal
Heart Rate: 86
Rhythm: sinus
*Critical Care Note
Total Time (30-74mins, 75-104mins- exclusive of procedures): Not Applicable
<Brenna Hidalgo PA-C - Last Filed: 06/28/25 11:30>
Patient Management
Discussion with other providers: Hospitalist
Escalation/DeEscalation of care consider admission/obs:
Admit for further management
ED Attending Note
<Brenna Hidalgo PA-C - Last Filed: 06/28/25 11:30>
-
Portions of this chart may have been created with voice recognition software.� Occasional wrong word or��sound alike� substitutions may have occurred due to the inherent limitations of voice recognition software.
<Karan Cardenas DO - Last Filed: 06/27/25 21:37>
ED Attending Note
Patient seen and examined by attending physician: Yes
I performed the substantive portion of visit, reviewed & personally made and approve the management plan that is documented in note by myself or RADHA.: Yes
ED Attending Note:
I evaluated the patient at bedside. Concern for sepsis. He is febrile with marked leukocytosis. He initially arrived hypotensive and hypoxic but is improving with fluids. Giving IV antibiotics. Spoke to daughter/care tech at bedside.
Discharge Plan
Departure
Patient Disposition: Admit
Date of Disposition: 06/27/25
Time of Disposition: 21:38
Presentation/result/management discussed w/ accepting MD/DO: Hospitalist
Patient with high blood pressure during this ER visit?: No
Discharge Problem:
Sepsis, Right lower lobe pneumonia, Acute hyperkalemia
Interventions
Interventions:
*Risk Screen - Suicide Last Done: 06/28/25 00:13
*General Assessment Last Done: 06/27/25 20:42
*Neglect/Abuse Screening Last Done: 06/27/25 20:42
*ED- Fall Risk Assessment Last Done: 06/27/25 20:42
*ED COVID-19 Vaccine History Last Done: 06/27/25 20:42
*Nursing Disposition Last Done: 06/28/25 00:13
ED- Cardiac Assessment Last Done: 06/27/25 20:45
ED- Pulmonary Assessment Last Done: 06/27/25 20:45
Discharge Date and Time
Discharge Date/Time: 06/28/25 00:14
[2025-06-27 20:37] LABS: Hematocrit 46.1 % (39.0-52.0); Hemoglobin 14.9 g/dL (13.0-18.0); Mean Corp Hgb Conc. 32.3 g/dL (33.0-37.0); Mean Corpuscular Volume 89.3 fL (80.0-94.0); Nucleated Red Blood Cells % 0 % (-); Platelet Count 229 10^3/uL (130-400); Red Cell Dist. Width 16.6 % (11.5-14.5)
[2025-06-27 20:50] LABS: Urine Character Clear (Clear)
[2025-06-27 20:56] LABS: COVID-19 Antigen Negative (Negative)
[2025-06-27 21:00] LABS: Urine Red Blood Cell 0-2 /HPF (0-2); Urine White Cell 0-2 /HPF (0-5)
[2025-06-27] MEDS: TYLENOL 650 MG PO (21:04)
[2025-06-27 21:15] LABS: ALT (SGPT) 19 U/L (0-50); AST (SGOT) 21 U/L (17-59); Albumin 3.9 g/dl (3.5-5.0); Alkaline Phosphatase 118 U/L (38-126); Blood Urea Nitrogen 27 mg/dl (9-20); Calcium 9.3 mg/dl (8.4-10.2); Carbon Dioxide 29 mmol/L (22-30); Chloride 103 mmol/L (98-107); Estimated Creatinine Clearance 42 ml/min; Glucose 104 mg/dl (70-99); Potassium 6.1 mmol/L (3.5-5.1); Sodium 137 mmol/L (135-145); Total Protein 6.5 g/dl (6.3-8.2); eGFR > 60.00
[2025-06-27] MEDS: NSS 1000 IV ×2 (21:45→22:57)
[2025-06-27] MEDS: ROXICODONE 5 MG PO (21:45)
[2025-06-27] MEDS: LOKELMA 10 GRAM PO (21:47)
[2025-06-27] MEDS: ROCEPHIN 1000 MG IV (21:49)
[2025-06-27] MEDS: ZITHROMAX INFUSION 250 IV (21:55)
--- NOTE | 2025-06-27 21:56 | W.PN.UPDATE ---
Update Note
Progress Note Update
This is an addendum to H&P written by CLIENT SERVICES ASSISTANT Yumiko Lara
I saw and examined the patient.
The CLIENT SERVICES ASSISTANT's note was reviewed and I agree with the note.
Comment:
Mr. Jomar Salinas is a 80 yo man with hx CANVAS syndrome (cerebellar ataxia, neuropathy, vestibular areflexia syndrome), presents to the ER with fevers and change in mentation. He has a cough, weakness and trouble breathing found to have RLL
pneumonia.
Triage VS: T 99.6 up to 101, P 92, RR 16, BP 82/57, SpO98 89%; repeat BP post fluids 118/76
On exam patient is frail appearing, in no acute distress; + course breath sounds, no LE swelling
LABS: WBC 20.7, Hg 14.9, PLT 229, Na 137, K+ 6.1, Cr 1.1, Lactate 2.6, T. Bili 1.6, AST 21, ALT 19
EKG: sinus tachycardia, no peaked T waves
Head CT
IMPRESSION:
No acute intracranial abnormality.
CXR
FINDINGS/IMPRESSION:
Right lower lobe airspace opacity, most compatible with pneumonia. Recommend radiographic follow-up to resolution.
Small right pleural fluid may also be present.
Low lung volumes. No pneumothorax. The cardiomediastinal silhouette is normal. Chronic degenerative changes of the spine.
Severe Sepsis 2/2 RLL Pneumonia
TME 2/2 Above
-admit to telemetry
-IVF
-IV Ceftriaxone/Azithro
-trend lactate
-follow up cultures
Hyperkalemia
-s/p fluids and Lokelma in the ER. K < 6.5 without EKG changes
-repeat K in 4 hours
-if K remains elevated, patient needs further Lokelma dosing and possible IV insulin/glucose therapy
Hx CANVAS syndrome
-chronic issues with balance and speech
-continue asa 81 daily
Cervical spine degenerative disc disease
Chronic pain, opiate dependence
-continue home regimen
DVT PPx Lovenox subQ
FULL CODE
76 minutes spent on patient care
--- NOTE | 2025-06-27 22:22 | HPS.HSE ---
Family Physician
-
Family Physician: Chan Rodriguez
Chief Complaint
-
Fever
History of Present Illness
Patient is a 80 y/o male past medical history of CANVAS syndrome, cervical degenerative disc disease and chronic pain with opioid dependence who presents with fever. Additional history is obtained from patient's daughter at the bedside. Patient
started to feel unwell yesterday after with fevers as high as 102.7F. Daughter notes patient was experiencing hallucinations with fever but refused to come to the hospital yesterday. Fevers continued today associated with sweats and rigors. She
notes patient has been dealing with a productive cough over the past few weeks with sputum that was initially clear, however during my evaluation patient produced a very thick cream/orange colored sputum.
Medical History
Past Medical History
Past Medical History: Reports Other
Additional Past Medical History:
Cervical Degenerative Disc Disease
Chronic Pain with Opioid Dependence
CANVAS Syndrome
Past Surgical History: Reports None
Social History
Tobacco: Smoker (Currently just a few cigarettes per day)
Alcohol: None
Family History
Family History: Not pertinent
Allergies / Home Medications
Allergies reflects when Allergies were last updated in [employer].
Home Medications with original date entered in [employer]
Allergy/Medication List:
Allergies
Allergy/AdvReac Type Severity Reaction Status Date / Time
Penicillins Allergy Unknown Unknown Verified 06/27/25 21:42
Home Medications
gabapentin 100 mg capsule 100 mg PO BID@0700,1900 02/07/24
morphine 15 mg immediate release tablet 15 mg PO BID@0100,1300 02/07/24
oxycodone 5 mg tablet 5 mg PO 0400,1000,1600,2200 02/07/24
albuterol sulfate 90 mcg/actuation aerosol inhaler 2 puff inhalation Q4HPRN PRN shortness of breath 06/27/25
aspirin 81 mg tablet 81 mg PO DAILY 06/27/25
Review of Systems
-
A 12 point ROS was completed and negative except as noted: Yes
Constitutional: Reports Fever and Chills
Respiratory: Reports Cough
Cardiac: Denies Chest Pain
Abdomen/GI: Denies Abdominal Pain, Nausea or Vomiting
Physical Exam
Vital Signs
Vital Signs
Temp Pulse Resp BP Pulse Ox
101.0 F H 72 15 104/65 99
06/27/25 20:41 06/27/25 22:00 06/27/25 22:00 06/27/25 22:00 06/27/25 22:00
Physical Exam
General: Comfortable and Conversant
HEENT: Anicteric and Moist mucous membranes
Respiratory: Wheezes (bilateral bases, Right greater than Left), Rales (bilateral bases) and Non Labored Respirations
Cardiac: S1/S2 and Regular Rhythm
GI: Soft and Non Tender
Rectal: Deferred by Provider
Musculoskeletal: No Clubbing, No Cyanosis and No Edema
Skin: Warm and Dry
Neuro: Awake, Alert, Oriented and Nonfocal/grossly intact
Psych: Calm
Laboratory Results
-
06/27/25 20:21
06/27/25 20:21
Laboratory Results
Lactic Acid 2.6 mmol/L (0.7-2.0) H 06/27/25 20:21
Total Bilirubin 1.6 mg/dl (0.2-1.3) H 06/27/25 20:21
AST 21 U/L (17-59) 06/27/25 20:21
ALT 19 U/L (0-50) 06/27/25 20:21
Alkaline Phosphatase 118 U/L (38-126) 06/27/25 20:21
Data Reviewed
-
Lab Data: Labs Reviewed by me
Impression/Plan
-
Severe Sepsis secondary to Pneumonia
-Continue ceftriaxone and azithromycin
-Attempt to obtain sputum cultures
-Await blood cultures
-Add Mucinex
Cervical Degenerative Disc Disease
Chronic Pain with Opioid Dependence
-Continue gabapentin, morphine, and oxycodone as prior to admission
CANVAS Syndrome
-Consult PT/OT and Speech
DVT proph: Lovenox
Code Status: Full Code
[2025-06-27] MEDS: NSS 500 IV (23:52)
[2025-06-28] VITALS (11 sets, daily range): BP systolic 98–147; BP diastolic 53–74; PULSE 72–98; O2SAT 95–98; BMI 19.9
[2025-06-28 00:13] LABS: Potassium 4.4 mmol/L (3.5-5.1)
[2025-06-28] MEDS: MORPHINE SULFATE 15 MG PO ×2 (01:09→12:50)
--- NOTE | 2025-06-28 01:19 | PTCARENOTE ---
ax3 - temp 100.1- sinus 70's bp wnl- fluids at 250 running- ambulated to br x1 /walker- reis w i/wheezes- 96% on room air- box lunch given and pt ate . pain meds given per orders. skin looks good. daughter at bedside- poc reviewed.
[2025-06-28] MEDS: NSS 1000 IV (03:24)
[2025-06-28] MEDS: ROXICODONE 5 MG PO ×4 (04:00→21:53)
[2025-06-28] MEDS: NEURONTIN 100 MG PO ×2 (06:44→18:39)
[2025-06-28] MEDS: DUONEB 3 ML INH ×4 (07:19→20:38)
[2025-06-28] MEDS: MUCINEX 600 MG PO ×2 (07:41→20:52)
[2025-06-28] MEDS: ASPIR LOW (ENTERIC COATED) 81 MG PO (07:41)
[2025-06-28] MEDS: TYLENOL 650 MG PO (07:41)
[2025-06-28 09:12] LABS: Hematocrit 38.5 % (39.0-52.0); Hemoglobin 12.7 g/dL (13.0-18.0); Mean Corp Hgb Conc. 33.0 g/dL (33.0-37.0); Mean Corpuscular Volume 90.6 fL (80.0-94.0); Platelet Count 181 10^3/uL (130-400); Red Cell Dist. Width 16.8 % (11.5-14.5)
--- NOTE | 2025-06-28 09:19 | W.PN.HOSP.TC ---
Today's Communication/Plan
-
see A/P
Assessment / Plan
Assessment / Plan
HPI: 80 y/o male past medical history of CANVAS syndrome, cervical degenerative disc disease, chronic pain with opioid dependence; who presented with fever.
Additional history was obtained from patient's daughter at the bedside. 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 Daughter notes patient was experiencing hallucinations with fever but refused to come to the hospital
at that time. Fevers continued and associated with sweats and rigors. She notes patient has been dealing with a productive cough over the past few weeks with sputum that was initially clear, however now has become thick creamy/orange in color.
CXR:
Right lower lobe airspace opacity, most compatible with pneumonia. Recommend radiographic follow-up to resolution.
Small right pleural fluid may also be present.
Low lung volumes. No pneumothorax. The cardiomediastinal silhouette is normal. Chronic degenerative changes of the spine.
A/P:
# Severe Sepsis POA 2/2 RLL Pneumonia/ CAP
# Acute metabolic encephalopathy 2/2 Above
# Acute hypxic respiraoty insuffiency
# Resolved mild lactic acidosis
Pt placed on 4L NC on admission, wean O2 as tolerated, he is not on home O2
Monitor MS
Observe off additional IVF
Cont IV Ceftriaxone/Azithro
follow up cultures, check MRSA screen
Noted COVID/Flu negative
# Hyperkalemia, resolved after treatment with Lokelma
# Hx CANVAS syndrome
# chronic issues with balance and speech
continue asa 81 daily
# Cervical spine degenerative disc disease
# Chronic pain, opiate dependence
continue home regimen
DVT PPx Lovenox subQ
FULL CODE
Dispo: PT OT eval
DW RN
updated daughter on the phone
total time 51 min
Anticipated Discharge: 24 - 48 hours
Subjective/Interval History
-
Date of Service: June 28, 2025
Objective Data
-
Labs:
Laboratory Results
06/27/25 06/28/25
23:53 08:06
WBC 13.8 H
Hgb 12.7 L
Hct 38.5 L
Plt Count 181 D
Sodium Pending
Potassium 4.4 D Pending
Chloride Pending
Carbon Dioxide Pending
BUN Pending
Creatinine Pending
Glucose Pending
Calcium Pending
Vital Signs:
Vital Signs
Temp Pulse Resp BP Pulse Ox
38.6 C H 81 16 147/74 94
06/28/25 07:08 06/28/25 07:23 06/28/25 07:23 06/28/25 07:08 06/28/25 07:23
I&O
06/27/25 06/28/25 06/29/25
06:59 06:59 06:59
Intake Total 2019
Balance 2019
Review of Systems
-
History Source: Patient
Constitutional: Reports Fever
Respiratory: Reports Cough
Physical Exam
-
General: Well Developed, Well Nourished, Comfortable, Respiratory Distress and Conversant
HEENT: Normocephalic, Atraumatic, Nose Appears Normal, Ears Appear Normal and Oxygen (4L NC)
Respiratory: Clear to Auscultation, Crackles (R base) and Non Labored Respirations; Negative Accessory Resp Muscle Use
Cardiac: Regular Rhythm and S1/S2
GI: Soft, Nontender, Nondistended and Normal Bowel Sounds
Skin: Warm and Dry
Neuro: Awake and Alert
Psych: Calm and Intact Judgement/Insight (somewhat)
Data Reviewed
-
Diagnostic Radiology: Report Reviewed by me
Labs: Labs Reviewed by me
[2025-06-28 09:21] LABS: Blood Urea Nitrogen 21 mg/dl (9-20); Calcium 8.4 mg/dl (8.4-10.2); Carbon Dioxide 27 mmol/L (22-30); Chloride 106 mmol/L (98-107); Estimated Creatinine Clearance 60 ml/min; Glucose 101 mg/dl (70-99); Magnesium 2.1 mg/dl (1.6-2.3); Potassium 4.4 mmol/L (3.5-5.1); Sodium 136 mmol/L (135-145); eGFR > 60.00
--- NOTE | 2025-06-28 13:32 | PTOTSP ---
Dysphagia Evaluation:
Given PMH and current PNA, pt presents w/ chronic risk factors for dysphagia/aspiration. During bedside swallow evaluation, pt demonstrated delayed coughing/throat clearing x1 with clear vocal quality post. He reported no difficulty or sensation of
stasis in throat.
Recommendations:
1. Regulars, Thins
2. Medications as best tolerated.
3. Partial assistance w/ meals.
4. Strategies: Single sips/small bites, slowed rate of eating, alternating liquid washes
5. Instrumental swallow study to objectively determine occurrence of aspiration given PMH and chronic risk factors.
Daughter declined instrumental swallow study. Patient has been deferring to daughter for decisions. ST will sign off. Reconsult if changes in pt presentation or POC.
--- NOTE | 2025-06-28 14:01 | CM ---
CM following re: discharge planning.
Reviewed pt's chart, met with pt and daughter Jane at bedside.
Pt is a 80 year pold male, admitted with primary dx of Pneumonia.
Pt reports he lives with daughter and her family 2SH, 2 steps to enter. Pt reports he has a walker and a cane, does not use them. Pt is current with [facility] and pt expressed his strong desire to return back home with [facility].
PT and OT evaluations noted - SNF level of care recommended. both pt and his daughter are aware and daughter strongly declined SNF level of care and she stated that her father will return back home with [facility]umptions of [facility].
A referral to [facility] made.
PCP: Chan Rodriguez
Pharmacy: [facility]
D/C plan: home with resumptions of [facility] and family support. Daughter to transport at discharge.
CM will follow with discharge plan updates as hospitalization progresses
[2025-06-28] MEDS: LOVENOX 40 MG SC (17:51)
[2025-06-28] MEDS: ZITHROMAX 500 MG PO (21:52)
[2025-06-28] MEDS: STERILE WATER FOR INJECTION 10 ML IV (21:52)
[2025-06-28] MEDS: ROCEPHIN 1000 MG IV (21:52)
[2025-06-29] VITALS (7 sets, daily range): BP systolic 117–181; BP diastolic 62–93
[2025-06-29] MEDS: MORPHINE SULFATE 15 MG PO ×2 (00:01→14:20)
[2025-06-29] MEDS: TYLENOL 650 MG PO (02:39)
[2025-06-29] MEDS: ROXICODONE 5 MG PO ×4 (03:49→22:05)
[2025-06-29] MEDS: NEURONTIN 100 MG PO ×2 (06:46→18:05)
[2025-06-29] MEDS: DUONEB 3 ML INH (07:05)
[2025-06-29 07:19] LABS: Hematocrit 35.3 % (39.0-52.0); Hemoglobin 12.0 g/dL (13.0-18.0); Mean Corp Hgb Conc. 34.0 g/dL (33.0-37.0); Mean Corpuscular Volume 88.3 fL (80.0-94.0); Nucleated Red Blood Cells % 0 % (-); Platelet Count 160 10^3/uL (130-400); Red Cell Dist. Width 16.2 % (11.5-14.5)
[2025-06-29 07:43] LABS: Blood Urea Nitrogen 14 mg/dl (9-20); Calcium 8.4 mg/dl (8.4-10.2); Carbon Dioxide 27 mmol/L (22-30); Chloride 105 mmol/L (98-107); Estimated Creatinine Clearance 80 ml/min; Glucose 94 mg/dl (70-99); Magnesium 2.1 mg/dl (1.6-2.3); Potassium 4.4 mmol/L (3.5-5.1); Sodium 133 mmol/L (135-145); eGFR > 60.00
[2025-06-29] MEDS: MUCINEX 600 MG PO ×2 (07:56→20:55)
[2025-06-29] MEDS: ASPIR LOW (ENTERIC COATED) 81 MG PO (07:56)
--- NOTE | 2025-06-29 08:21 | W.PN.HOSP.TC ---
Addendum entered and electronically signed by Caprice Pina MD 06/29/25 08:39:
discussed dispo option with daughter, she declined SNF and prefers to take pt back with HH
Original Note:
Today's Communication/Plan
-
see A/P
Assessment / Plan
Assessment / Plan
HPI: 80 y/o male past medical history of CANVAS syndrome, cervical degenerative disc disease, chronic pain with opioid dependence; who presented with fever.
Additional history was obtained from patient's daughter at the bedside. 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 Daughter notes patient was experiencing hallucinations with fever but refused to come to the hospital
at that time. Fevers continued and associated with sweats and rigors. She notes patient has been dealing with a productive cough over the past few weeks with sputum that was initially clear, however now has become thick creamy/orange in color.
CXR:
Right lower lobe airspace opacity, most compatible with pneumonia. Recommend radiographic follow-up to resolution.
Small right pleural fluid may also be present.
Low lung volumes. No pneumothorax. The cardiomediastinal silhouette is normal. Chronic degenerative changes of the spine.
A/P:
# Severe Sepsis POA 2/2 RLL Pneumonia/ CAP
# Acute metabolic encephalopathy 2/2 Above,
# Acute hypoxic respiratory insufficiency
# Resolved mild lactic acidosis
O2 weaned to 1.5 L NC, cont to wean as tolerated, he is not on home O2,
MS improving, today AOx2-3, cont to monitor MS
Observe off additional IVF
Cont IV Ceftriaxone/Azithro
follow up cultures, check MRSA screen
Noted COVID/Flu negative
Pt will eventually need repeat CXR outpt with PCP in 4-6 weeks, daughter informed
# Hyperkalemia, resolved after treatment with Lokelma
# Mild hyponatremia
# Hx CANVAS syndrome
# chronic issues with balance and speech
continue asa 81 daily
# Cervical spine degenerative disc disease
# Chronic pain, opiate dependence
continue home regimen
DVT PPx Lovenox subQ
FULL CODE
Dispo: PT OT recc SNF
DW RN
updated daughter at bedside
Anticipated Discharge: 24 - 48 hours
Subjective/Interval History
-
Date of Service: June 29, 2025
Objective Data
-
Labs:
Laboratory Results
06/29/25
06:39
WBC 8.2
Hgb 12.0 L
Hct 35.3 L
Plt Count 160
Sodium 133 L
Potassium 4.4
Chloride 105
Carbon Dioxide 27
BUN 14
Creatinine 0.6 L
Glucose 94
Calcium 8.4
Vital Signs:
Vital Signs
Temp Pulse Resp BP Pulse Ox
36.9 C 76 18 155/78 94
06/29/25 07:05 06/29/25 07:08 06/29/25 07:08 06/29/25 07:05 06/29/25 07:32
I&O
06/28/25 06/29/25 06/30/25
06:59 06:59 06:59
Intake Total 2019 1050 / 1050
Balance 2019 1050 / 1050
Review of Systems
-
History Source: Patient
Constitutional: Reports Fever
Respiratory: Reports Cough (improved )
Physical Exam
-
General: Well Developed, Well Nourished, Comfortable, Respiratory Distress and Conversant
HEENT: Normocephalic, Atraumatic, Nose Appears Normal, Ears Appear Normal and Oxygen (1.5L NC)
Respiratory: Clear to Auscultation, Crackles (R base mild) and Non Labored Respirations; Negative Accessory Resp Muscle Use
Cardiac: Regular Rhythm and S1/S2
GI: Soft, Nontender, Nondistended and Normal Bowel Sounds
Skin: Warm and Dry
Neuro: Awake and Alert
Psych: Calm and Intact Judgement/Insight (somewhat)
Data Reviewed
-
Diagnostic Radiology: Report Reviewed by me
Labs: Labs Reviewed by me
--- NOTE | 2025-06-29 11:34 | CM ---
CM following re: discharge planning.
Reviewed pt's chart, met with pt and daughter Jane at bedside.
Pt lives with daughter and her family 2SH, 2 steps to enter, has a walker and a cane, does not use them. Pt is current with [facility] and pt expressed his strong desire to return back home with resumptions of [facility].
PT and OT evaluations noted - SNF level of care recommended. Both pt and his daughter are aware and daughter strongly declined SNF level of care and she stated that her father will return back home with [facility]um[facility] of [facility]. Pt's
daughter confirmed today again that a plan is for pt to return back home with [facility]umptions of [facility].
A referral to [facility] made yesterday.
Please fax discharge instructions to [facility] at: [phone]
D/C plan: home with resumptions of [facility] and family support. Daughter to transport at discharge.
CM will follow with discharge plan updates as hospitalization progresses
[2025-06-29] MEDS: MORPHINE SULFATE PO ×2 (13:10→13:15)
[2025-06-29] MEDS: LOVENOX 40 MG SC (18:06)
[2025-06-29] MEDS: ROCEPHIN 1000 MG IV (22:02)
[2025-06-29] MEDS: ZITHROMAX 500 MG PO (22:02)
[2025-06-29] MEDS: STERILE WATER FOR INJECTION 10 ML IV (22:02)
[2025-06-29] MEDS: FLUSH (NSS) 2 FLUSH IV (22:03)
[2025-06-30] MEDS: MORPHINE SULFATE 15 MG PO ×2 (01:19→13:19)
[2025-06-30 03:10] VITALS: BP 162/88
[2025-06-30] MEDS: ROXICODONE 5 MG PO ×4 (04:12→21:54)
[2025-06-30 06:53] LABS: Hematocrit 38.9 % (39.0-52.0); Hemoglobin 12.7 g/dL (13.0-18.0); Mean Corp Hgb Conc. 32.6 g/dL (33.0-37.0); Mean Corpuscular Volume 87.8 fL (80.0-94.0); Nucleated Red Blood Cells % 0 % (-); Platelet Count 199 10^3/uL (130-400); Red Cell Dist. Width 15.9 % (11.5-14.5)
[2025-06-30 06:57] LABS: Blood Urea Nitrogen 8 mg/dl (9-20); Calcium 8.4 mg/dl (8.4-10.2); Carbon Dioxide 28 mmol/L (22-30); Chloride 100 mmol/L (98-107); Estimated Creatinine Clearance 80 ml/min; Glucose 79 mg/dl (70-99); Potassium 4.2 mmol/L (3.5-5.1); Sodium 132 mmol/L (135-145); eGFR > 60.00
[2025-06-30 07:05] VITALS: BP 166/96
[2025-06-30] MEDS: NEURONTIN 100 MG PO ×2 (07:23→18:15)
--- NOTE | 2025-06-30 08:06 | W.PN.HOSP.TC ---
Today's Communication/Plan
-
continue to wean off oxygen.
Assessment / Plan
Assessment / Plan
HPI: 80 y/o male past medical history of CANVAS syndrome, cervical degenerative disc disease, chronic pain with opioid dependence; who presented with fever.
Additional history was obtained from patient's daughter at the bedside. 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 Daughter notes patient was experiencing hallucinations with fever but refused to come to the hospital
at that time. Fevers continued and associated with sweats and rigors. She notes patient has been dealing with a productive cough over the past few weeks with sputum that was initially clear, however had become thick creamy/orange in color.
CXR:
Right lower lobe airspace opacity, most compatible with pneumonia.
Recommend radiographic follow-up to resolution.
Small right pleural fluid may also be present.
Low lung volumes. No pneumothorax. The cardiomediastinal silhouette is normal.
Chronic degenerative changes of the spine.
A/P:
1. Severe Sepsis POA 2/2 RLL Pneumonia/ CAP
Complicated by Acute metabolic encephalopathy 2/2 Above,
Complicated by Acute hypoxic respiratory insufficiency
Complicated by lactic acidosis (now Resolved)
O2 weaned to 1.5 L NC
cont to wean today as tolerated, he is not on home O2,
MS improving, today AOx2-3, cont to monitor MS
Observe off additional IVF
Cont IV Ceftriaxone/Azithro
follow up cultures, (so far neg, but final results not ready yet. MRSA screen neg)
Noted COVID/Flu negative
Pt will eventually need repeat CXR outpt with PCP in 4-6 weeks, daughter informed
Likely home today or tomorrow, depends how O2 weaning goes
2. Hyperkalemia, resolved after treatment with Lokelma
3. Mild hyponatremia - continues, today 132
Should resolve as pneumonia resolves
4. Hx CANVAS syndrome - chronic
chronic issues with balance and speech
continue Home occupational therapy
continue asa 81 daily
5. Cervical spine degenerative disc disease
Complicaed by Chronic pain, opiate dependence
continue home regimen
DVT PPx Lovenox subQ
FULL CODE
Dispo: PT OT recc SNF
updated daughter at bedside
Anticipated Discharge: Within 24 hours
Subjective/Interval History
-
Date of Service: June 30, 2025
Feels about the same. No new issues.
Objective Data
-
Labs:
Laboratory Results
06/30/25
05:26
WBC 7.8
Hgb 12.7 L
Hct 38.9 L
Plt Count 199 D
Sodium 132 L
Potassium 4.2
Chloride 100
Carbon Dioxide 28
BUN 8 L
Creatinine 0.6 L
Glucose 79
Calcium 8.4
Vital Signs:
Vital Signs
Temp Pulse Resp BP Pulse Ox
99.7 F 102 16 166/96 92
06/30/25 07:05 06/30/25 07:05 06/30/25 07:05 06/30/25 07:05 06/30/25 07:05
I&O
06/29/25 06/30/25 07/01/25
06:59 06:59 06:59
Intake Total 1050 / 1050 480 / 480
Balance 1050 / 1050 480 / 480
Review of Systems
-
History Source: Patient
All other systems: Reviewed and negative
Respiratory: Reports Cough
Physical Exam
-
General: Well Developed, Well Nourished, No Apparent Distress, Comfortable and Conversant
HEENT: Normocephalic, Nose Appears Normal and Ears Appear Normal
Respiratory: Rhonchi and Crackles
Cardiac: Regular Rhythm and S1/S2
GI: Soft, Nontender and Nondistended
Musculoskeletal: No Clubbing, No Cyanosis and No Edema
Skin: Warm and Dry
Neuro: Awake and Alert
Psych: Calm
Data Reviewed
-
Labs: Labs Reviewed by me
[2025-06-30] MEDS: MUCINEX 600 MG PO ×2 (08:53→19:53)
[2025-06-30] MEDS: ASPIR LOW (ENTERIC COATED) 81 MG PO (08:53)
[2025-06-30 11:05] VITALS: BP 155/92
[2025-06-30 15:05] VITALS: BP 112/75
[2025-06-30] MEDS: LOVENOX 40 MG SC (18:15)
[2025-06-30 19:34] VITALS: BP 123/79
[2025-06-30] MEDS: ZITHROMAX 500 MG PO (21:52)
[2025-06-30] MEDS: ROCEPHIN 1000 MG IV (21:52)
[2025-06-30] MEDS: STERILE WATER FOR INJECTION 10 ML IV (21:52)
[2025-06-30] MEDS: FLUSH (NSS) 2 FLUSH IV (21:54)
[2025-06-30 23:05] VITALS: BP 169/84
[2025-07-01] MEDS: MORPHINE SULFATE 15 MG PO (00:52)
[2025-07-01 03:05] VITALS: BP 144/87
[2025-07-01] MEDS: ROXICODONE 5 MG PO ×2 (03:53→10:15)
[2025-07-01] MEDS: NEURONTIN 100 MG PO (06:28)
[2025-07-01 06:50] LABS: Hematocrit 41.4 % (39.0-52.0); Hemoglobin 13.6 g/dL (13.0-18.0); Mean Corp Hgb Conc. 32.9 g/dL (33.0-37.0); Mean Corpuscular Volume 87.7 fL (80.0-94.0); Nucleated Red Blood Cells % 0 % (-); Platelet Count 230 10^3/uL (130-400); Red Cell Dist. Width 15.5 % (11.5-14.5)
[2025-07-01 07:14] LABS: Blood Urea Nitrogen 13 mg/dl (9-20); Calcium 8.9 mg/dl (8.4-10.2); Carbon Dioxide 30 mmol/L (22-30); Chloride 100 mmol/L (98-107); Estimated Creatinine Clearance 80 ml/min; Glucose 85 mg/dl (70-99); Potassium 4.2 mmol/L (3.5-5.1); Sodium 135 mmol/L (135-145); eGFR > 60.00
--- NOTE | 2025-07-01 07:37 | W.DCSUMMARY ---
Discharge Summary
Discharge Data
Date of Admission: 06/27/25
Date of Discharge: 07/01/25
-
Pending Results: No
Hospital Course
Initial presentation:
80 y/o male past medical history of CANVAS syndrome, cervical degenerative disc disease, chronic pain with opioid dependence; who presented with fever.
Additional history was obtained from patient's daughter at the bedside. 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 Daughter notes patient was experiencing hallucinations with fever but refused to come to the hospital
at that time. Fevers continued and associated with sweats and rigors. She notes patient had been dealing with a productive cough over the past few weeks with sputum that was initially clear, however had become thick creamy/orange in color.
CXR at admit:
Right lower lobe airspace opacity, most compatible with pneumonia.
Recommend radiographic follow-up to resolution.
Small right pleural fluid may also be present.
Low lung volumes. No pneumothorax. The cardiomediastinal silhouette is normal.
Chronic degenerative changes of the spine.
Diagnosis present prior to admit:
spinal degeneration
Chronic pain syndrome on chronic opioids
heart murmur
Diverticulitis
Depression/anxiety
Irritable bowel syndrome
tonsillectomy
vasectomy
tinea cruris
Hospital course by problem and A/P:
1. Severe Sepsis POA 2/2 RLL Pneumonia/ CAP
Complicated by Acute metabolic encephalopathy 2/2 Above,
Complicated by Acute hypoxic respiratory insufficiency
Complicated by lactic acidosis (now Resolved)
O2 weaned to 1.5 L NC, then weaned off. At day of discharge he was comfortable without O2
MS improved, today AOx3, cont to monitor MS as outpatient
He was Observed off additional IVF and did well, with normal labs
IV Ceftriaxone/po Azithro was given for 4 days, will continue the po azithromycin for 3 more days as outpatient
Cultures have been all negative (usual respiratory layla). MRSA screen neg
COVID/Flu negative
Pt will eventually need repeat CXR outpt with PCP in 4-6 weeks, daughter informed
2. Hyperkalemia, resolved after treatment with Lokelma
3. Mild hyponatremia - resolved, today 135
4. Hx CANVAS syndrome - chronic
chronic issues with balance and speech
continue Home occupational therapy
continue asa 81 daily
5. Cervical spine degenerative disc disease
Complicaed by Chronic pain, opiate dependence
continue home regimen
DVT PPx while in hospital was Lovenox subQ
He was FULL CODE while in hospital
Dispo: PT OT at home (daughter has arranged this)
updated daughter at bedside, patient and her agree to the discharge.
Day of discharge exam:
General: Well Developed, Well Nourished, No Apparent Distress, Comfortable and Conversant
HEENT: Normocephalic, Nose Appears Normal and Ears Appear Normal
Respiratory: Rhonchi and Crackles (less than yesterday, good air movement)
Cardiac: Regular Rhythm and S1/S2
GI: Soft, Nontender and Nondistended
Musculoskeletal: No Clubbing, No Cyanosis and No Edema
Skin: Warm and Dry
Neuro: Awake and Alert
Psych: Calm
Discharge Plan
-
Patient Disposition: Home with Home Care
Discharge Diagnosis/Procedures: Severe Sepsis due to RLL Pneumonia;
Confusion due to above;
Acute hypoxic respiratory insufficiency
Condition: Fair
Diet: As tolerated and Regular
Activity: As tolerated
Driving Restrictions: As prior to admission
Others Tests: repeat CXR in 4-6 weeks with your PCP
Referrals:
Chan Rodriguez CRNP [Family Provider, Internal Medicine]
Prescriptions:
New
azithromycin 250 mg Tablet
500 mg PO HS Qty: 4 0RF
Continued
gabapentin 100 mg Capsule
100 mg PO BID@0700,1900
morphine 15 mg Tablet
15 mg PO BID@0100,1300
oxycodone 5 mg Tablet
5 mg PO 0400,1000,1600,2200
aspirin 81 mg Tablet
81 mg PO DAILY
albuterol sulfate 90 mcg/actuation HFA aerosol inhaler
2 puff INHALATION Q4HPRN PRN (Reason: shortness of breath)
Discharge Orders:
Discharge Patient (As Directed); Ordered 07/01/25
Ordered By: Too Buitrago
Discharge Date and Time
Print Language: PERUVIAN
[2025-07-01 08:07] VITALS: BP 157/80
[2025-07-01] MEDS: ASPIR LOW (ENTERIC COATED) 81 MG PO (08:24)
[2025-07-01] MEDS: MUCINEX 600 MG PO (08:24)
--- NOTE | 2025-07-01 10:11 | CM ---
Patient seen at bedside on [address] with patient daughter. Patient to go home with daughter, IMM completed and form placed on chart. Patient daughter confirmed plan for [facility] therapy at discharge. CM updated all scripts to confirm discharge home
today, response in all scripts patient was being reviewed, VM left on phone as well [phone]. CM will continue to follow for discharge planning needs.
Please fax discharge instructions to [facility] at: [phone]
D/C plan: home with resumptions of [facility] and family support. Daughter to transport at discharge.
== END 2025-07-01 10:55 | disposition home or self-care (01) | DRG 871 ==
LOC: 2 NORTH 22:43
PROVIDERS: Internal Medicine; Physician Assistant Medical; ADMITTING PHYSICIAN Student in an Organized Health Care Education/Training Program; ATTENDING PHYSICIAN Internal Medicine; EMERGENCY PHYSICIAN Emergency Medicine; FAMILY PHYSICIAN Nurse Practitioner Adult Health
DX: A41.9 Sepsis, unspecified organism (principal); G93.41 Metabolic encephalopathy; J18.9 Pneumonia, unspecified organism; E87.1 Hypo-osmolality and hyponatremia; F11.20 Opioid dependence, uncomplicated; E87.20 Acidosis, unspecified; G32.81 Cerebellar ataxia in diseases classified elsewhere; R09.02 Hypoxemia; B35.6 Tinea cruris; E87.5 Hyperkalemia; R65.20 Severe sepsis without septic shock; M50.30 Other cervical disc degeneration, unspecified cervical region; F17.210 Nicotine dependence, cigarettes, uncomplicated; K58.9 Irritable bowel syndrome, unspecified; F32.A Depression, unspecified; F41.9 Anxiety disorder, unspecified; G89.4 Chronic pain syndrome; Z79.899 Other long term (current) drug therapy; Z79.891 Long term (current) use of opiate analgesic; Z79.82 Long term (current) use of aspirin; Z11.52 Encounter for screening for COVID-19
CPT/HCPCS: 70450; 71046; 80048; 80053; 81003; 81015; 83605; 83735; 84132; 85025; 85027; 87040; 87070; 87086; 87205; 87502; 87811; 92610; 93005; 94640; 96365; 97163; 97167; 99285; 99406

== ENCOUNTER → 2025-07-31 09:53 | Outpatient (REF) | payer MEDICARE, OTHER, SELFPAY | LOC: RAD 09:53 | PROVIDERS: ATTENDING PHYSICIAN Nurse Practitioner Adult Health | DX: J18.9 Pneumonia, unspecified organism (principal); Z09 Encounter for follow-up examination after completed treatment for conditions other than malignant neoplasm | CPT/HCPCS: 71046 ==